=== PATIENT | female | born 1950 | race Two or more races ===

== ENCOUNTER 2019-06-25 11:56 | Inpatient (IN) | payer OTHER ==
[~2019-06-25] VITALS: Ht 149.9 cm; Wt 61.7 kg
[2019-06-30] MEDS ORDERED: ZOCOR40 MG PO (10:01)
[2019-06-30] MEDS ORDERED: DIOVAN160 M1 PO (10:01)
[2019-06-30] MEDS ORDERED: ZIAC 2.5-6.251 EACH PO (10:01)
[2019-06-30] MEDS ORDERED: PROTONIX40 MG PO (10:02)
[2019-06-30] MEDS ORDERED: ASPIR 8181 MG PO (10:02)
[2019-06-30] MEDS ORDERED: CALTRATE 600 +1 EACH PO (10:02)
[2019-06-30] MEDS ORDERED: VITAMIN B125000 MCG PO (10:02)
[2019-06-30] MEDS ORDERED: LATANOPROST2.5 ML OP (10:03)
== END 2019-07-12 11:13 | disposition home or self-care (01) | DRG 326 ==
LOC: SURG 07-03 09:15 → O/R 07-10 08:09 → SURH 07-10 08:09
PROVIDERS: ADMIT Surgery
PROC: 0DN Gastrointestinal System, Release (ICD-10-PCS; 2019-07-10)
PROC: 0WQF4ZZ Repair Abdominal Wall, Percutaneous Endoscopic Approach (ICD-10-PCS; 2019-07-10)
PROC: 0DJ08ZZ Inspection of Upper Intestinal Tract, Via Natural or Artificial Opening Endoscopic (ICD-10-PCS; 2019-07-10)
PROC: 0BUT4JZ Supplement Diaphragm with Synthetic Substitute, Percutaneous Endoscopic Approach (ICD-10-PCS; principal; 2019-07-10 08:00)
DX: K44.0 Diaphragmatic hernia with obstruction, without gangrene (principal); K56.2 Volvulus; K42.0 Umbilical hernia with obstruction, without gangrene; K31.89 Other diseases of stomach and duodenum; K21.9 Gastro-esophageal reflux disease without esophagitis; I10 Essential (primary) hypertension; E78.49 Other hyperlipidemia

== ENCOUNTER 2019-06-30 07:24 | Outpatient (CLI) | payer OTHER ==
[2019-06-30] MEDS ORDERED: ZOCOR40 MG PO (10:01)
[2019-06-30] MEDS ORDERED: ZIAC 2.5-6.251 EACH PO (10:01)
[2019-06-30] MEDS ORDERED: DIOVAN160 M1 PO (10:01)
[2019-06-30] MEDS ORDERED: PROTONIX40 MG PO (10:02)
[2019-06-30] MEDS ORDERED: ASPIR 8181 MG PO (10:02)
[2019-06-30] MEDS ORDERED: VITAMIN B125000 MCG PO (10:02)
[2019-06-30] MEDS ORDERED: CALTRATE 600 +1 EACH PO (10:02)
[2019-06-30] MEDS ORDERED: LATANOPROST2.5 ML OP (10:03)
== END 2019-06-30 08:57 | disposition home or self-care (01) ==
LOC: LAB 07:24
DX: I10 Essential (primary) hypertension (principal); K44.9 Diaphragmatic hernia without obstruction or gangrene; R10.30 Lower abdominal pain, unspecified

== ENCOUNTER 2022-08-17 10:27 | Outpatient (CLI) | payer OTHER ==
[~2022-08-17 10:27] MED LIST: ASPIR 8181 MG PO; CALTRATE 600 +1 EACH PO; DIOVAN160 M1 PO; LATANOPROST2.5 ML OP; PROTONIX40 MG PO; VITAMIN B125000 MCG PO; ZIAC 2.5-6.251 EACH PO; ZOCOR40 MG PO
== END 2022-08-17 10:36 | disposition home or self-care (01) ==
LOC: SONOGRAMA 10:27
PROVIDERS: ATTEND Surgery
DX: C50.911 Malignant neoplasm of unspecified site of right female breast (principal)

== ENCOUNTER 2022-10-15 08:47 | Outpatient (CLI) | payer OTHER | END 2022-10-15 08:49 | disposition home or self-care (01) | LOC: LAB 08:47 | PROVIDERS: ATTEND Surgery | DX: I10 Essential (primary) hypertension (principal); D64.9 Anemia, unspecified; D68.9 Coagulation defect, unspecified; N39.0 Urinary tract infection, site not specified; E11.9 Type 2 diabetes mellitus without complications; E04.1 Nontoxic single thyroid nodule; E78.2 Mixed hyperlipidemia; Z20.822 Contact with and (suspected) exposure to COVID-19 ==

== ENCOUNTER 2022-10-26 06:08 | Day surgery (SDC) | payer OTHER ==
[~2022-10-26 06:08] MED LIST changes: +BONIVA150 MG PO; +CALTRATE 600+D1 EAC1 PO; +NORVASC5 MG PO; +VITAMIN B122500 MC1 PO
== END 2022-10-26 22:50 | disposition home or self-care (01) ==
LOC: CIR.AMB 06:08 → LAB 12:01 → CIR.AMB 12:02
PROVIDERS: ATTEND Surgery
DX: C50.411 Malignant neoplasm of upper-outer quadrant of right female breast (principal); Z17.0 Estrogen receptor positive status [ER+]; N60.81 Other benign mammary dysplasias of right breast; R59.0 Localized enlarged lymph nodes; I10 Essential (primary) hypertension; E78.5 Hyperlipidemia, unspecified; Z86.16 Personal history of COVID-19; Z20.822 Contact with and (suspected) exposure to COVID-19
CPT/HCPCS: 19301; 38525; 19281; A9541; L8699

== ENCOUNTER 2023-02-28 10:52 | Outpatient (CLI) | payer OTHER | END 2023-02-28 10:55 | disposition home or self-care (01) | LOC: SONOGRAMA 10:52 | PROVIDERS: ATTEND Pathology Anatomic Pathology & Clinical Pathology | DX: D34 Benign neoplasm of thyroid gland (principal); E07.9 Disorder of thyroid, unspecified ==

== ENCOUNTER 2025-05-12 11:53 | Inpatient (IN) | payer OTHER ==
[~2025-05-12] VITALS: Ht 152.4 cm; Wt 72.6 kg
[2025-05-12] MEDS ORDERED: PEPCID AC10 MG (12:27)
[2025-05-12] MEDS ORDERED: ZOCOR40 MG PO (12:28)
[2025-05-12] MEDS ORDERED: ANASTROZOLE1 MG (12:28)
[2025-05-12] MEDS ORDERED: CHILDREN'S ASPI81 MG (12:28)
[2025-05-12] MEDS ORDERED: SYNTHROID75 MCG PO (12:29)
[2025-05-12] MEDS ORDERED: DIOVAN160 M1 (12:29)
[2025-05-12] MEDS ORDERED: ACULAR LS5 ML (12:32)
[2025-05-12] MEDS ORDERED: DORZOLAMIDE-TI1 EACH OP (12:32)
[2025-05-12] MEDS ORDERED: VYZULTA5 ML (12:33)
--- NOTE | 2025-05-12 12:36 | NUR ---
PTE ALERTA Y ORINTADA X3 REFIERE QUE DESDE EL MEAGHAN DE [place] A SENTIDO DOLOR PERSISTENTE EN FLANCO DERECHO, VOMITOS Y DEBILIDAD. LLAMO A ROJAS CARDIOLOGO EL DR. RADHA ROWLAND LAST QUIE LE INDICO QUE VINIERA A LINDA DE EMERGENCIA. SE MIDEN S/V Y SE REALIZA EKG EL CUAL ES EVALUADO POR EL DR OLIVEROS E INDICA QUE SE UBIQUE EN PASILLO
[2025-05-12] MEDS ORDERED: HYOSCYAMINE SULFATE 0.125 MG TAB.SUBL SL STA (13:05)
[2025-05-12] MEDS ORDERED: KETOROLAC TROMETHAMINE 30 MG VIAL IV STA (13:06)
[2025-05-12] MEDS ORDERED: FAMOtidine 10 MG/ML (4ML VIAL) IV PUSH STA (13:06)
[2025-05-12 15:53] LABS: BASO % 0.1 % (0.1-1.2); EOS # 0.00 (0.04-0.54); EOS % 0.0 % (0.7-7.0); LYMPH # 0.97 (1.18-3.74); LYMPH % 8.1 % (19.3-53.1); MEAN PLATELET VOLUME 12.70 fl (9.4-12.4); MONO # 0.48 (0.24-0.82); MONO % 4.0 % (4.7-12.5); NEUT # 10.42 (1.56-6.13); NEUT % 87.2 % (34.0-71.1); RED CELL DISTRIBUTION WIDTH 13.2 % (11.6-14.4)
[2025-05-12 16:16] LABS: INR 1.03
[2025-05-12 16:30] LABS: ALT/SGPT 970.0 U/L (12-78); BILIRUBIN TOTAL 4.2 mg/dL (0.3-1.2); BILIRUBIN,CONJUGATED 2.75 mg/dL (0.0-0.2); BUN CREA RATIO 19.0 (7.0-25.0); CREATININE SERUM 0.81 mg/dL (0.55-1.02); GFR 69.12; GLOBULINA 4.0 G/DL (2.4-3.5); GLUCOSE FASTING 167.0 mg/dL (65-100); OSMOLALITY SERUM 288.0 MOSM/KG (275-295)
[2025-05-12 16:34] LABS: AST/SGOT 1261.0 U/L (15-37)
--- NOTE | 2025-05-12 16:37 | NUR ---
RN EDWARDS EDUCA ACERCA DE [place] ORDENADO Y REFIRE ENTENDER. SE CANALIZA Y COLECTAN MUESTRAS DE LABORATORIO MEDIANTE MEDIDAS ASEPTICAS. SE ADMINSITRAN MEDICAMENTOS HAYLEE ORDEN MEDICA.
[2025-05-12] MEDS ORDERED: MORPHINE SULFATE 4 MG/ML VIAL IV STA (16:40)
[2025-05-12] MEDS ORDERED: PIPERACILLIN/TAZOBACTAM SODIUM 3.375 GM VIAL IV STA (16:40)
[2025-05-12] MEDS ORDERED: 0.9 % SODIUM CHLORIDE 1,000 ML IV SCH (19:15)
[2025-05-12] MEDS ORDERED: ACETAMINOPHEN 500 MG GEL..CAP PO PRN (19:15)
[2025-05-12] MEDS ORDERED: MORPHINE SULFATE 4 MG/ML CARTRIDGE IV PRN (19:15)
[2025-05-13] MEDS ORDERED: PIPERACILLIN/TAZOBACTAM SODIUM 3.375 GM in DEXTROSE 5 % IN WATER 100 ML IV SCH
[2025-05-13 04:00] VITALS: BP 161/72; O2SAT 95
[2025-05-13] MEDS ORDERED: LEVOTHYROXINE SODIUM 75 MCG TABLET PO SCH (06:00)
[2025-05-13 06:02] LABS: URINE APPEARANCE Clear; URINE BILIRRUBIN Small (NEGATIVE); URINE BLOOD Small; URINE COLOR Dark Yellow; URINE KETONE 15 (NEGATIVE); URINE LEUKOCYTE Negative; URINE NITRATE Negative; URINE UROBILINOGEN 1.0 E.U./dl
[2025-05-13 06:06] LABS: URINE BACTERIA 39.5 uL (0.0-1933); URINE CAST 1.90 uL (0.0-1.40); URINE EPITHELIAL CELLS 30.4 uL (0.0-38.8); URINE RBC 20.6 uL (0.0-20.8); URINE WBC 9.5 uL (0.0-23.2)
[2025-05-13 06:21] LABS: URINE GLUCOSE >=1000 MG/DL (NEGATIVE); URINE PROTEIN 300 (NEGATIVE)
[2025-05-13 07:02] LABS: ALT/SGPT 703.0 U/L (12-78); AST/SGOT 516.0 U/L (15-37); BILIRUBIN TOTAL 4.68 mg/dL (0.3-1.2); BILIRUBIN,CONJUGATED 3.03 mg/dL (0.0-0.2)
[2025-05-13] MEDS ORDERED: FAMOTIDINE/PF 20 MG in 0.9 % SODIUM CHLORIDE 8 ML IV PUSH SCH (09:00)
[2025-05-13] MEDS ORDERED: LOSARTAN POTASSIUM 50 MG TABLET PO SCH (09:00)
[2025-05-13 09:09] VITALS: BP 160/90; O2SAT 98
[2025-05-13] MEDS ORDERED: hydrALAZINE HCL 20 MG VIAL IV PRN (15:15)
[2025-05-13 17:57] VITALS: BP 120/67
[2025-05-13 17:58] VITALS: BP 120/67
[2025-05-14] MEDS ORDERED: PANTOPRAZOLE SODIUM 40 MG/VIAL VIAL IV SCH (00:50)
[2025-05-14] MEDS ORDERED: RINGERS SOLUTION,LACTATED 1,000 ML IV SCH (01:00)
[2025-05-14 01:29] VITALS: BP 86/43; O2SAT 96
[2025-05-14 03:20] VITALS: BP 136/65
[2025-05-14 09:12] VITALS: BP 144/87; O2SAT 98
[2025-05-14 18:58] VITALS: BP 163/81; O2SAT 94
[2025-05-15 03:22] VITALS: BP 150/70; O2SAT 97
[2025-05-15 08:06] LABS: BASO % 0.3 % (0.1-1.2); EOS # 0.05 (0.04-0.54); EOS % 0.8 % (0.7-7.0); LYMPH # 1.24 (1.18-3.74); LYMPH % 19.7 % (19.3-53.1); MEAN PLATELET VOLUME 13.20 fl (9.4-12.4); MONO # 0.78 (0.24-0.82); NEUT # 4.18 (1.56-6.13); NEUT % 66.3 % (34.0-71.1); RED CELL DISTRIBUTION WIDTH 13.7 % (11.6-14.4)
[2025-05-15 08:14] LABS: MONO % 12.4 % (4.7-12.5)
[2025-05-15 08:41] LABS: ALT/SGPT 282.0 U/L (12-78); AST/SGOT 91.0 U/L (15-37); BILIRUBIN TOTAL 1.0 mg/dL (0.3-1.2); BILIRUBIN,CONJUGATED 0.3 mg/dL (0.0-0.2); BUN CREA RATIO 13.0 (7.0-25.0); CREATININE SERUM 0.75 mg/dL (0.55-1.02); GFR 75.54; GLOBULINA 2.4 G/DL (2.4-3.5); GLUCOSE FASTING 94.0 mg/dL (65-100); OSMOLALITY SERUM 291.0 MOSM/KG (275-295)
[2025-05-15 11:21] VITALS: BP 181/81
[2025-05-15 16:44] VITALS: BP 181/84; O2SAT 97
[2025-05-15] MEDS ORDERED: POTASSIUM PHOS,M-BASIC-D-BASIC 15 MM in 0.9 % SODIUM CHLORIDE 250 ML IV ONE (22:30)
[2025-05-16] MEDS ORDERED: POTASSIUM CHLORIDE IN WATER 100 ML IV SCH (01:00)
[2025-05-16 03:15] VITALS: BP 149/69; O2SAT 98
[2025-05-16 07:30] LABS: BASO % 0.3 % (0.1-1.2); EOS # 0.05 (0.04-0.54); EOS % 0.8 % (0.7-7.0); LYMPH # 1.31 (1.18-3.74); LYMPH % 19.8 % (19.3-53.1); MEAN PLATELET VOLUME 13.40 fl (9.4-12.4); MONO # 0.90 (0.24-0.82); NEUT # 4.32 (1.56-6.13); NEUT % 65.2 % (34.0-71.1); RED CELL DISTRIBUTION WIDTH 13.5 % (11.6-14.4)
[2025-05-16 07:39] LABS: MONO % 13.6 % (4.7-12.5)
[2025-05-16 07:50] LABS: ALT/SGPT 229.0 U/L (12-78); AST/SGOT 63.0 U/L (15-37); BILIRUBIN TOTAL 0.99 mg/dL (0.3-1.2); BILIRUBIN,CONJUGATED 0.29 mg/dL (0.0-0.2); BUN CREA RATIO 9.0 (7.0-25.0); CREATININE SERUM 0.68 mg/dL (0.55-1.02); GFR 84.58; GLOBULINA 2.7 G/DL (2.4-3.5); GLUCOSE FASTING 95.0 mg/dL (65-100); OSMOLALITY SERUM 288.0 MOSM/KG (275-295)
[2025-05-16 09:00] VITALS: BP 187/78; O2SAT 97
[2025-05-16 17:47] VITALS: BP 195/91; O2SAT 97
[2025-05-17 00:12] VITALS: BP 135/70; O2SAT 98
[2025-05-17 07:24] LABS: ALT/SGPT 169.0 U/L (12-78); AST/SGOT 54.0 U/L (15-37); BILIRUBIN TOTAL 0.89 mg/dL (0.3-1.2); BUN CREA RATIO 6.0 (7.0-25.0); CREATININE SERUM 0.64 mg/dL (0.55-1.02); GFR 90.71; GLOBULINA 2.6 G/DL (2.4-3.5); GLUCOSE FASTING 103.0 mg/dL (65-100); OSMOLALITY SERUM 288.0 MOSM/KG (275-295)
[2025-05-17 10:07] VITALS: BP 188/86; O2SAT 97
[2025-05-17] MEDS ORDERED: DICLOFENAC SODIUM 100 MG SUPP.RECT RECTAL ONE (13:30)
[2025-05-17] MEDS ORDERED: GLUCAGON 1 MG VIAL IV ONE ×2 (14:00)
[2025-05-17] MEDS ORDERED: MAGNESIUM SULFATE 1,000 MG in 0.9 % SODIUM CHLORIDE 50 ML IV ONE (19:45)
[2025-05-17] MEDS ORDERED: POTASSIUM CHLORIDE IN WATER 100 ML IV ONE (19:45)
[2025-05-17 21:27] VITALS: BP 160/86; O2SAT 97
[2025-05-18] VITALS: BP 152/71; O2SAT 95
[2025-05-18 09:33] VITALS: BP 175/75; O2SAT 96
[2025-05-18 17:22] VITALS: BP 197/72; O2SAT 95
[2025-05-19 02:28] VITALS: BP 178/77; O2SAT 95
[2025-05-19 06:23] LABS: BASO % 0.3 % (0.1-1.2); EOS # 0.17 (0.04-0.54); EOS % 2.5 % (0.7-7.0); LYMPH # 1.24 (1.18-3.74); LYMPH % 18.6 % (19.3-53.1); MEAN PLATELET VOLUME 13.20 fl (9.4-12.4); MONO # 0.60 (0.24-0.82); MONO % 9.0 % (4.7-12.5); NEUT # 4.62 (1.56-6.13); NEUT % 69.2 % (34.0-71.1); RED CELL DISTRIBUTION WIDTH 13.8 % (11.6-14.4)
[2025-05-19 07:17] LABS: ALT/SGPT 133.0 U/L (12-78); AST/SGOT 68.0 U/L (15-37); BILIRUBIN TOTAL 0.94 mg/dL (0.3-1.2); BUN CREA RATIO 8.0 (7.0-25.0); CREATININE SERUM 0.64 mg/dL (0.55-1.02); GFR 90.71; GLOBULINA 2.8 G/DL (2.4-3.5); GLUCOSE FASTING 89.0 mg/dL (65-100); OSMOLALITY SERUM 282.0 MOSM/KG (275-295)
[2025-05-19 09:10] VITALS: BP 170/80; O2SAT 98
[2025-05-19] MEDS ORDERED: SUGAMMADEX SODIUM 200 MG/2 ML VIAL IV ONE (14:30)
[2025-05-19] MEDS ORDERED: MORPHINE SULFATE 4 MG/ML VIAL IV ONE (15:05)
[2025-05-19] MEDS ORDERED: ENALAPRILAT DIHYDRATE 1.25 MG/ML VIAL IV ONE (16:00)
[2025-05-19 17:38] VITALS: BP 147/76; O2SAT 95
[2025-05-20 02:36] VITALS: BP 173/80; O2SAT 90
[2025-05-20 07:00] VITALS: BP 167/74; O2SAT 95
[2025-05-20 17:25] VITALS: BP 163/81
[2025-05-21 02:32] VITALS: BP 182/79; O2SAT 94
[2025-05-21 09:34] VITALS: BP 179/84
[2025-05-21 17:27] VITALS: BP 177/109; O2SAT 96
[2025-05-21 17:49] VITALS: BP 140/80
[2025-05-21] MEDS ORDERED: NIFEDIPINE 30 MG TAB.SA.OSM PO STA (17:51)
== END 2025-05-21 18:18 | disposition home or self-care (01) | DRG 419 ==
LOC: MEDI → EDBD 13:42 → ER 13:42 → MEDI 19:22
PROVIDERS: General Practice; Internal Medicine; Surgery; ADMIT Internal Medicine; ATTEND Internal Medicine
PROC: BW40ZZZ Ultrasonography of Abdomen (ICD-10-PCS; 2025-05-12)
PROC: BF37ZZZ Magnetic Resonance Imaging (MRI) of Pancreas (ICD-10-PCS; 2025-05-12)
PROC: 0F798ZZ Dilation of Common Bile Duct, Via Natural or Artificial Opening Endoscopic (ICD-10-PCS; 2025-05-17)
PROC: 0F788ZZ Dilation of Cystic Duct, Via Natural or Artificial Opening Endoscopic (ICD-10-PCS; 2025-05-17)
PROC: BF13YZZ Fluoroscopy of Gallbladder and Bile Ducts using Other Contrast (ICD-10-PCS; 2025-05-17)
PROC: 0FC98ZZ Extirpation of Matter from Common Bile Duct, Via Natural or Artificial Opening Endoscopic (ICD-10-PCS; 2025-05-17)
PROC: XFJB8A7 Inspection of Hepatobiliary Duct using Single-use Duodenoscope, New Technology Group 7 (ICD-10-PCS; 2025-05-17)
PROC: 0F9G80Z Drainage of Pancreas with Drainage Device, Via Natural or Artificial Opening Endoscopic (ICD-10-PCS; 2025-05-17)
PROC: 0DB68ZX Excision of Stomach, Via Natural or Artificial Opening Endoscopic, Diagnostic (ICD-10-PCS; 2025-05-17)
PROC: 0FT44ZZ Resection of Gallbladder, Percutaneous Endoscopic Approach (ICD-10-PCS; principal; 2025-05-19 14:30)
DX: K80.62 Calculus of gallbladder and bile duct with acute cholecystitis without obstruction (principal); I10 Essential (primary) hypertension; E03.9 Hypothyroidism, unspecified